=== PATIENT | male | born 1980 | race Caucasian/White ===

== ENCOUNTER 2024-03-26 10:20 | Outpatient (CLI) | payer MEDICAID, SELFPAY ==
[2024-03-26 11:12] LABS: Basophils # 0.1 10^3/uL (0.0-0.1); Basophils % 1.8 %; Eosinophils # 0.2 10^3/uL (0.0-0.8); Eosinophils % 5.9 %; Hematocrit 48.2 % (37-53); Lymphocytes # 1.6 10^3/uL (0.8-4.8); Lymphocytes % 40.1 %; Mean Corpuscular HGB Conc 33.2 g/dL (30-55); Mean Corpuscular Hemoglobin 33.3 pg (27-33); Mean Corpuscular Volume 100.2 fl (82-101); Monocytes # 0.4 10^3/uL (0.2-0.9); Monocytes % 9.8 %; Neutrophils # 1.65 10^3/uL (1.8-7.7); Neutrophils % 42.4 %; Nucleated Red Blood Cells % 0 %; Platelet Count 152 10^3/cmm (157-399); Red Blood Count 4.81 10^6/uL (3.85-5.65); Red Cell Distribution Width 12.4 % (12.1-15.1); White Blood Count 3.89 10^3/uL (3.29-11.43)
[2024-03-26 11:47] LABS: Estmated Average Glucose 97
[2024-03-26 11:48] LABS: Bilirubin Urine Neg (Negative); Blood Urine Neg (Negative); Glucose Urine UA Norm (Normal); Ketones Urine Negative (Negative); Leukocyte Esterase Urine Negative (Negative); Nitrate Urine Negative (Negative); Protein Urine Neg (Negative); Specific Gravity, Urine 1.015 (1.005-1.030); Urine Appearance Clear (CLEAR); Urine Color Yellow (Yellow); Urobilinogen Urine Norm (Negative); pH Urine 6 (5-7)
[2024-03-26 11:49] LABS: Thyroid Stimulating Hormone 1.26 uIU/mL (0.27-4.20); Tumor Marker Alpha Fetoprotein 2.8 ng/mL (0-8.3)
[2024-03-26 12:01] LABS: Alanine Aminotransferase 55 U/L (0-41); Albumin Level 4.1 g/dL (3.5-5.2); Alkaline Phosphatase 266 U/L (40-130); Anion Gap 16.1 (5-19); Aspartate Amino Transferase 64 U/L (0-40); Blood Urea Nitrogen 11 mg/dL (6-20); Calcium 9.2 mg/dL (8.5-10.5); Carbon Dioxide 22 mmol/L (22-29); Chloride 104 mmol/L (98-107); Chol HDL Ratio 5.22 mg/dL (1.0-5.00); Cholesterol 193 mg/dL (0-200); Globulin 4.2 g/dL (1.3-4.6); Glomerular Filtration Rate 91.7 mL/min (90-130); Glucose 95 mg/dL (65-115); HDL Cholesterol 37 mg/dL (60-100); LDL Cholesterol Calculated 125 mg/dL (50-129); LDL HDL Ratio 3.38 RATIO (0.00-3.22); Osmolality Calculated 285 mOsm/kg (285-295); Potassium 4.1 mmol/L (3.5-5.1); Sodium 138 mmol/L (136-145); Total Bilirubin 0.3 mg/dL (0.15-1.2); Total Protein 8.3 g/dL (6.6-8.7); Triglycerides 153 mg/dL (0-150)
[2024-03-26 12:51] LABS: Ferritin 147 ng/mL (30-400); Iron 139 ug/dL (59-158); Percent Saturation 37.7 % (20-50); Total Iron Binding Capacity 368 mcg/dl; Unsaturated Iron Binding 229 ug/dL (112-347)
[2024-03-26 13:07] LABS: 25 Hydroxy Vitamin D 19 ng/mL (30-100); Vitamin B12 768 pg/mL (232-1245)
[2024-03-29 13:55] LABS: HEP C RNA Viral Load Quant <1.18 NOT DETECTED Log IU/mL (NOT DETECTED); HEP C RNA Viral Load Quant <15 NOT DETECTED IU/mL (NOT DETECTED)
[2024-03-31 08:28] LABS: Hepatitis B Virus DNA 19900 IU/mL (NOT DETECTED)
== END 2024-03-26 10:21 | disposition home or self-care (01) ==
LOC: RAD 10:21
PROVIDERS: Family Provider Family Medicine; PCP Family Medicine; Visit Provider Nurse Practitioner Family
DX: B19.20 Unspecified viral hepatitis C without hepatic coma (principal); B19.10 Unspecified viral hepatitis B without hepatic coma; E55.9 Vitamin D deficiency, unspecified; D64.9 Anemia, unspecified; Z01.89 Encounter for other specified special examinations; Z79.899 Other long term (current) drug therapy; R10.811 Right upper quadrant abdominal tenderness
CPT/HCPCS: 80053; 80061; 81001; 82105; 82306; 82607; 82728; 83036; 83540; 83550; 84439; 84443; 85025; 87517; 87522

== ENCOUNTER 2024-04-01 07:18 | Outpatient (CLI) | payer MEDICAID, SELFPAY ==
--- NOTE | 2024-04-01 07:45 | US_ITS ---
WS: [id number] RIGHT UPPER QUADRANT ULTRASOUND HISTORY: RUQ abdominal tenderness COMPARISON: None available. Liver: 13.6 cm in length. Normal size liver. Surface of the liver is slightly nodular and the liver i s echogenic and coarse. No mass or bile duct dilatation. Normal appearance of the portal vein. No rev ersal of flow. Portal Vein: Normal hepatopetal flow with monophasic waveform. Gallbladder: Gallbladder is abnormal. Gallbladder is contracted with diffuse wall thickening. No ston es are identified within the contracted lumen. No adjacent fluid. CBD: 0.3 cm, only a small portion of the common bile duct is visualized. Pancreas: Not well visualized. Right kidney: 13.0 cm in length. Normal size and echogenicity. No hydronephrosis or mass. Aorta and IVC: Unremarkable abdominal aorta and IVC. No ascites. US/US gall bladder [id number] IMPRESSION: 1. Changes of mild cirrhosis involving the liver. No mass. 2. Normal portal vein. 3. Contracted gallbladder with diffuse wall thickening. This is probably due t o hepatocellular disease or nonfasting state. No stones or evidence for acute c holecystitis.
== END 2024-04-01 07:19 | disposition home or self-care (01) ==
LOC: RAD 07:18
PROVIDERS: Family Provider Family Medicine; PCP Family Medicine; Visit Provider Surgery
DX: R10.811 Right upper quadrant abdominal tenderness (principal); K74.60 Unspecified cirrhosis of liver; B19.20 Unspecified viral hepatitis C without hepatic coma; B19.10 Unspecified viral hepatitis B without hepatic coma
CPT/HCPCS: 76705

== ENCOUNTER 2024-07-30 12:14 | Emergency (ER) | payer MEDICAID, SELFPAY ==
[2024-07-30 12:40] VITALS: BP 123/73; PULSE 92; RESP 18; TEMP 36.7; O2SAT 97
--- NOTE | 2024-07-30 12:45 | ECG_ITS ---
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 Measurements Intervals [place] Rate: 91 P: 87 MD: 129 QRS: 90 QRSD: 101 T: 78 QT: 344 QTc: 424 Interpretive Statements SINUS RHYTHM POSSIBLE RIGHT ATRIAL ENLARGEMENT [0.25mV P-WAVE] POSSIBLE LEFT ATRIAL ENLARGEMENT [-0.1mV P-WAVE IN V1/V2] POSSIBLE RIGHT VENTRICULAR CONDUCTION DELAY [RSR (QR) IN V1/V2] Compared to ECG 04/13/2017 22:32:51 Incomplete right bundle-branch block no longer present ST (T wave) deviation no longer present Early repolarization no longer present Electronically Signed On 07-31-2024 20:55:35 CDT by Zeinab Espino M.D. [id number]
--- NOTE | 2024-07-30 13:36 | CT_ITS ---
WS: [id number] CT ABDOMEN AND PELVIS WITH CONTRAST HISTORY: ruq/flank pain, weight loss TECHNIQUE: Imaging performed of the abdomen and pelvis with IV contrast. Single phase imaging of the abdomen. Coronal and sagittal reformats are submitted. All CT scans at [facility] use at [address] one of these dose optimization techniques: automated exposure control; mA and/or kV adjustment per patient size (includes targeted exams where dose is matched to clinical indication); or iterative re construction. IV CONTRAST: Omnipaque 350; 100 mL IV. Oral contrast: No DLP: 305.61 mGy.cm COMPARISON: No similar studies. Lower thorax: Chronic emphysema at the lung bases. No pneumonia. Heart is normal size. No hiatal susan ia. Liver/biliary system: Normal size with no intrahepatic dilatation. Gallbladder: Contracted gallbladder with mild wall thickening. Pancreas: Normal size pancreas and pancreatic duct. No adjacent inflammation. Spleen: Normal size with granulomata. Adrenal glands: Normal. Right kidney: 12.4 cm in length. Mild compensatory hypertrophy. No mass or obstruction. Left kidney: LEFT kidney is not identified. No history of prior nephrectomy. Aorta: Normal. Lymphadenopathy: None. Free fluid: None. GI tract: Stomach is markedly distended with fluid and food products. No mass identified at the gastr ic outlet. No small bowel obstruction. Normal appendix. No colitis. Abdominal wall: Unremarkable abdominal wall. No hernia. Pelvis: No free fluid or adenopathy within the pelvis. Bones: Unremarkable. CT/CT abdomen pelvis w con* [id number] IMPRESSION: 1. Marked gastric distention with fluid and food products. Consider gastropare sis. No mass identified at the gastric outlet. 2. Absent LEFT kidney. No history of prior nephrectomy. Compensatory hypertrop hy of the RIGHT kidney. 3. Contracted gallbladder may be due to nonfasting. 4. No free fluid or adenopathy.
--- NOTE | 2024-07-30 13:39 | ED_ITS ---
HPI - Weakness 2 General: Chief complaint: Weakness Stated complaint: numbness and tingling in hands/ right side pain Time Seen by Provider: 07/30/24 13:12 Source: patient History of Present Illness: Patient is a well-appearing 43-year-old male who presents to the ER with complaints of couple of month history of some right sided flank and right upper quadrant abdominal pain. 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 He also complains of bilateral hand numbness and tingling intermittently for several days. He states he has seen his PCP recently for evaluation of the right upper quadrant flank pain and had an ultrasound that showed some cirrhosis. He has a history of hepatitis B. He also has a history of drug use but has been in remission for at least 2 months. He states he has had unknown weight loss in the last few months as well. He denies any vomiting. No fevers or chills. He has frequent normal bowel movements. No dysuria or frequency. No hematuria. Associated symptoms: Denies chest pain, chills, diaphoresis, fever(s) or headache(s) Review of Systems 2 Const: Denies: fever(s), chills or diaphoresis Card: Denies: chest pain Resp: Denies: dyspnea GI: Reports: abdominal pain Skin/Breast: Denies: rash Neuro: Denies: headache(s) [facility] ED 2 PFSH: Medical History (Updated 07/30/24 @ 16:01 by Michael Mckeon MD) History of methamphetamine abuse Patient has been clean of Meth for 5 month. Last used November 2023 Blood in stool Abnormal EKG Chest pain Medication management Encounter for laboratory test Vitamin D deficiency Hepatitis B Hepatitis C Family History Mother Diabetic acidosis, type I Social History Smoking and tobacco/nicotine status: current every day tobacco/nicotine user cigarettes Alcohol intake: never Substance/Drug Use: former Former substance use details: methamphetamine Physical Exam 2 Const: COMMON NORMALS: no acute distress, average body habitus, alert and well nourished GENERAL APPEARANCE: cooperative ORIENTATION/CONSCIOUSNESS: Yes awake HENMT: COMMON NORMALS: normocephalic and atraumatic HEAD & SCALP: n ormocephalic and atraumatic Eye: COMMON NORMALS: conjunctivae normal CONJUNCTIVA: Yes conjunctivae normal Neck/C-Spine: GENERAL: Yes normal visual inspection Resp: COMMON NORMALS: normal respiratory effort, No retractions and No use of accessory muscles Cardio: COMMON NORMALS: regular rhythm and Peripheral pulses 2+ throughout RHYTHM: regular rhythm PERIPHERAL PULSES: Peripheral pulses 2+ throughout GI: COMMON NORMALS: Normal to inspection, nondistended, normoactive bowel sounds present, Soft to palpation and non-tender PALPATION: Yes Soft to palpation Extremity: COMMON NORMALS: full ROM and no pedal edema Neuro: COMMON NORMALS: no focal motor deficits SENSORIUM/ORIENTATION: Yes alert Skin: COMMON NORMALS: no rashes or lesions noted GENERAL SKIN EXAM: no rashes or lesions noted Course 2 Vital Signs: Vital signs: Vital Signs Temperature 98.1 F 07/30/24 12:40 Pulse Rate 78 07/30/24 13:45 Respiratory Rate 16 07/30/24 14:35 Blood Pressure 121/72 07/30/24 14:35 Pulse Oximetry 98 07/30/24 13:45 Oxygen Delivery Me thod Room Air 07/30/24 13:45 MDM - Weakness Medical Decision Making Patient is a nontoxic 43-year-old gentleman who presents with complaints of some right upper quadrant and right flank pain intermittently for the last couple of weeks. 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 He also complains of some bilateral hand numbness and tingling from time to time. No other stroke or neurologic complaints or symptoms. No upper extremity or lower extremity weakness. No slurred speech. He has a NIH stroke scale of 0 on my exam. He is in no acute distress. His abdominal exam is benign. Vital signs are normal. Basic labs were obtained which are unremarkable per my interpretation. A CT scan of the abdomen and pelvis was performed. It shows an absent left kidney which she was unaware of. He has a distended stomach however states he did eat a large meal just prior to coming to the ER. No acute abnormalities noted on CT imaging. I have provided reassurance and recommended supportive care. I have most suspicion of overuse injury and musculoskeletal discomfort from his repetitive motions at work. He is recommended follow-up with his PCP and was provided return precautions. Lab Data 07/30/24 13:52 07/30/24 13:52 Radiology Impressions Abdomen/Pelvis CT 07/30/24 13:36 IMPRESSION: 1. Marked gastric distention with fluid and food products. Consider gastroparesis. No mass identified at the gastric outlet. 2. Absent LEFT kidney. No history of prior nephrectomy. Compensatory hypertrophy of the RIGHT kidney. 3. Contracted gallbladder may be due to nonfasting. 4. No free fluid or adenopathy. Laboratory Results WBC 6.27 10^3/uL (3.29-11.43) 07/30/24 13:52 RBC 4.42 10^6/uL (3.85-5.65) 07/30/24 13:52 Hgb 14.50 g/dL (11.27-16.99) 07/30/24 13:52 Hct 42.1 % (37-53) 07/30/24 13:52 MCV 95.2 fl (82-101) 07/30/24 13:52 MCH 32.8 pg (27-33) 07/30/24 13:52 MCHC 34.4 g/dL (30-55) 07/30/24 13:52 RDW 13.2 % (12.1-15.1) 07/30/24 13:52 Plt Count 175 10^3/cmm (157-399) 07/30/24 13:52 MPV 10.0 fL (7.4-10.4) 07/30/24 13:52 Neut % (Auto) 49.5 % 07/30/24 13:52 Lymph % (Auto) 34.6 % 07/30/24 13:52 [place] % (Auto) 9.1 % 07/30/24 13:52 Eos % (Auto) 4.8 % 07/30/24 13:52 Baso % (Auto) 1.8 % 07/30/24 13:52 Neut # (Auto) 3.11 10^3/uL (1.8-7.7) 07/30/24 13:52 Lymph # (Auto) 2.2 10^3/uL (0.8-4.8) 07/30/24 13:52 [place] # (Auto) 0.6 10^3/uL (0.2-0.9) 07/30/24 13:52 Eos # (Auto) 0.3 10^3/uL (0.0-0.8) 07/30/24 13:52 Baso # (Auto) 0.1 10^3/uL (0.0-0.1) 07/30/24 13:52 Nucleated RBC % (auto) 0 % 07/30/24 13:52 Nucleated RBCs # 0.0 /100WBC 07/30/24 13:52 PT 14.00 SECONDS (12.1-14.9) 07/30/24 13:52 INR 1.04 (0.8-1.2) 07/30/24 13:52 APTT 28.8 SECONDS (23.9-36.7) 07/30/24 13:52 Sodium 140 mmol/L (136-145) 07/30/24 13:52 Potassium 4.1 mmol/L (3.5-5.1) 07/30/24 13:52 Chloride 105 mmol/L (98-107) 07/30/24 13:52 Carbon Dioxide 23 mmol/L (22-29) 07/30/24 13:52 Anion Gap 16.1 (5-19) 07/30/24 13:52 BUN 17 mg/dL (6-20) 07/30/24 13:52 Creatinine 1.0 mg/dL (0.7-1.2) 07/30/24 13:52 GFR Calculation 81.2 mL/min (90-130) L 07/30/24 13:52 Glucose 103 mg/dL (65-115) 07/30/24 13:52 Calculated Osmolality 292 mOsm/kg (285-295) 07/30/24 13:52 Calcium 8.5 mg/dL (8.5-10.5) 07/30/24 13:52 Magnesium 1.9 mg/dL (1.7-2.3) 07/30/24 13:52 Total Bilirubin 0.6 mg/dL (0.15-1.2) 07/30/24 13:52 AST 42 U/L (0-40) H 07/30/24 13:52 ALT 40 U/L (0-41) 07/30/24 13:52 Alkaline Phosphatase 157 U/L (40-130) H 07/30/24 13:52 Total Protein 7.3 g/dL (6.6-8.7) 07/30/24 13:52 Albumin 4.1 g/dL (3.5-5.2) 07/30/24 13:52 Globulin 3.2 g/dL (1.3-4.6) 07/30/24 13:52 Lipase 43 U/L (13-60) 07/30/24 13:52 All radiology interpretation(s) finalized by discharge Discharge Plan Discharge Patient Disposition: Home Clinical Impression: Acute flank pain, Hand paresthesia Condition: Stable Prescriptions: No Action amoxicillin 875 mg tablet 875 mg PO BID Discharge Orders: Discharge ED (Routine); Ordered 07/30/24 Ordered By: Michael Mckeon Referrals: Eddie Morton MD [Primary Care Provider] - Discharge Diet: Usual diet Discharge Activity: Increase activity as tolerated Patient Instructions: Musculoskeletal Pain (ED), Opioid Safety, Pain Management Activity Restrictions/Additional Instructions: Patient may take Tylenol as directed for pain. Follow-up with your primary care provider as needed for recheck. Return to the ER for any new or worsening symptoms or any other concerns. 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
[2024-07-30 13:45] VITALS: BP 121/72; PULSE 78; RESP 16; O2SAT 98
[2024-07-30 14:06] LABS: Basophils # 0.1 10^3/uL (0.0-0.1); Basophils % 1.8 %; Eosinophils # 0.3 10^3/uL (0.0-0.8); Eosinophils % 4.8 %; Hematocrit 42.1 % (37-53); Lymphocytes # 2.2 10^3/uL (0.8-4.8); Lymphocytes % 34.6 %; Mean Corpuscular HGB Conc 34.4 g/dL (30-55); Mean Corpuscular Hemoglobin 32.8 pg (27-33); Mean Corpuscular Volume 95.2 fl (82-101); Monocytes # 0.6 10^3/uL (0.2-0.9); Monocytes % 9.1 %; Neutrophils # 3.11 10^3/uL (1.8-7.7); Neutrophils % 49.5 %; Nucleated Red Blood Cells % 0 %; Platelet Count 175 10^3/cmm (157-399); Red Blood Count 4.42 10^6/uL (3.85-5.65); Red Cell Distribution Width 13.2 % (12.1-15.1); White Blood Count 6.27 10^3/uL (3.29-11.43)
[2024-07-30 14:21] LABS: INR 1.04 (0.8-1.2)
[2024-07-30 14:22] LABS: Partial Thromboplastin Time 28.8 SECONDS (23.9-36.7)
[2024-07-30 14:24] LABS: Alanine Aminotransferase 40 U/L (0-41); Albumin Level 4.1 g/dL (3.5-5.2); Alkaline Phosphatase 157 U/L (40-130); Anion Gap 16.1 (5-19); Aspartate Amino Transferase 42 U/L (0-40); Blood Urea Nitrogen 17 mg/dL (6-20); Calcium 8.5 mg/dL (8.5-10.5); Carbon Dioxide 23 mmol/L (22-29); Chloride 105 mmol/L (98-107); Creatinine Clr Calc Pharmacy 83.8453; Globulin 3.2 g/dL (1.3-4.6); Glomerular Filtration Rate 81.2 mL/min (90-130); Glucose 103 mg/dL (65-115); Lipase 43 U/L (13-60); Magnesium 1.9 mg/dL (1.7-2.3); Osmolality Calculated 292 mOsm/kg (285-295); Potassium 4.1 mmol/L (3.5-5.1); Sodium 140 mmol/L (136-145); Total Bilirubin 0.6 mg/dL (0.15-1.2); Total Protein 7.3 g/dL (6.6-8.7)
--- NOTE | 2024-07-30 14:27 | PC.NURSE ---
patient refused next round of lab draws and next breathing treatment. requests to leave. she signed ama, iv discontinued and she walked out of ed. dr cosby notified.
[2024-07-30 14:35] VITALS: BP 121/72; RESP 16
[2024-07-30] MEDS: iohexol 350 mg/mL 500 mL Btl (per mL) IV (14:37)
--- NOTE | 2024-07-30 16:43 | PC.NURSE ---
iv discontinued prior to discharge. pt tolerated no complications
== END 2024-07-30 16:49 | disposition home or self-care (01) ==
PROVIDERS: Emergency Provider Student in an Organized Health Care Education/Training Program; PCP Internal Medicine
DX: R10.11 Right upper quadrant pain (principal); R20.2 Paresthesia of skin; F17.210 Nicotine dependence, cigarettes, uncomplicated; Z86.19 Personal history of other infectious and parasitic diseases
CPT/HCPCS: 74177; 80053; 83690; 83735; 85025; 85610; 85730; 93005; 99285

== ENCOUNTER 2025-01-22 12:58 | Emergency (ER) | payer MEDICAID, SELFPAY ==
[2025-01-22 13:24] VITALS: BP 129/86; PULSE 93; RESP 18; TEMP 37.1; O2SAT 97; BMI 19.5
[2025-01-22 14:29] LABS: Basophils # 0.1 10^3/uL (0.0-0.1); Basophils % 1.1 %; Eosinophils # 0.3 10^3/uL (0.0-0.8); Eosinophils % 4.9 %; Hematocrit 42.2 % (37-53); Lymphocytes # 2.1 10^3/uL (0.8-4.8); Lymphocytes % 37.1 %; Mean Corpuscular HGB Conc 32.7 g/dL (30-55); Mean Corpuscular Volume 97.9 fl (82-101); Mean Platelet Volume 10.2 fL (7.4-10.4); Monocytes # 0.6 10^3/uL (0.2-0.9); Monocytes % 11.2 %; Neutrophils # 2.53 10^3/uL (1.8-7.7); Neutrophils % 45.5 %; Nucleated Red Blood Cells % 0 %; Platelet Count 169 10^3/cmm (157-399); Red Blood Count 4.31 10^6/uL (3.85-5.65); Red Cell Distribution Width 13.4 % (12.1-15.1); White Blood Count 5.55 10^3/uL (3.29-11.43)
[2025-01-22 14:30] VITALS: BP 118/81; PULSE 81; O2SAT 96
--- NOTE | 2025-01-22 14:36 | W.ED.ABDPA2 ---
HPI - Abdominal Pain General: Chief Complaint: Abdominal Pain Stated Complaint: knot right side upper ab Time Seen by Provider: 01/22/25 13:07 History of Present Illness: 43-year-old male presents emergency room complaining of right upper quadrant discomfort. He has what he describes as a knot in his right upper abdomen. Its only palpable when he is standing. It is not noticeable or identifiable around the is lying down supine. No trauma. No vomiting or diarrhea he has been nauseous. He has a known history of hepatitis B and C he is currently at [facility]. No fever sweats or chills. Associated Symptoms: Denies chills, dysuria and fever(s) Related Data Home Medications ?Medication ?Instructions ?Recorded ?Confirmed mirtazapine 30 mg tablet 30 mg PO BEDTIME 01/22/25 01/22/25 Allergies Allergy/AdvReac Type Severity Reaction Status Date / Time morphine Allergy ALGY-Difficulty Verified 07/30/24 12:45 Breathing Review of Systems Const: Denies: fever(s) or chills Card: Denies: chest pain Resp: Denies: dyspnea GI: Denies: abdominal pain : Denies: dysuria, urinary frequency or urinary urgency Musc: Denies: neck pain or back pain Skin/Breast: Denies: rash PFSH ED PFSH: Medical History History of methamphetamine abuse Patient has been clean of Meth for 5 month. Last used November 2023 Blood in stool Abnormal EKG Chest pain Medication management Encounter for laboratory test Vitamin D deficiency Hepatitis B Hepatitis C Family History Mother Diabetic acidosis, type I Social History Smoking and tobacco/nicotine status: current every day tobacco/nicotine user cigarettes Alcohol intake: never Substance/Drug Use: former Former substance use details: methamphetamine Physical Exam Const: COMMON NORMALS: no acute distress GENERAL APPEARANCE: cooperative and comfortable ORIENTATION/CONSCIOUSNESS: Yes awake, Yes oriented to person, Yes oriented to place and Yes oriented to time HENMT: COMMON NORMALS: normocephalic, atraumatic and hearing grossly normal bilaterally HEAD & SCALP: normocephalic and atraumatic Resp: COMMON NORMALS: normal respiratory effort, No retractions, No use of accessory muscles and clear to auscultation bilaterally AUSCULTATION: clear to auscultation bilaterally Cardio: COMMON NORMALS: regular rate, regular rhythm and No murmurs present (Cardio) RATE: regular rate RHYTHM: regular rhythm GI: COMMON NORMALS: Soft to palpation and No hepatosplenomegaly present AUSCULTATION: Yes normoactive bowel sounds PALPATION: Yes Soft to palpation, No Tenderness to palpation present (GI), No Guarding due to palpation present (GI) and Yes No hepatosplenomegaly present OTHER: When standing the area the patient refers to feels like it is the edge of the rectus muscle there is no herniation. While supine is not identifiable or palpable in that same area. Extremity: COMMON NORMALS: normal to inspection, capillary refill normal, no clubbing, cyanosis or edema, no calf tenderness and no pedal edema Neuro: SENSORIUM/ORIENTATION: Yes oriented to person, Yes oriented to place and Yes oriented to time Skin: COMMON NORMALS: no rashes or lesions noted GENERAL SKIN EXAM: no rashes or lesions noted Course Vital Signs: Vital signs: Vital Signs Temperature 98.8 F 01/22/25 13:24 Pulse Rate 85 01/22/25 15:24 Respiratory Rate 18 01/22/25 13:24 Blood Pressure 130/79 01/22/25 15:24 Pulse Oximetry 98 01/22/25 15:24 Oxygen Delivery Me thod Room Air 01/22/25 15:00 MDM - Abdominal Pain Medical Decision Making The area the patient refers a nodule is not palpable by himself or by my exam. When he stands he is able to find the area of concern as long he upper portion of the rectus sheath muscle where it attaches to the obliques there is no herniation. No redness no erythema. Laboratory test not show any significant abnormalities other than the marked elevation of his transaminases and alk phos related to his hepatitis C and be. He has follow-up appointments for this. His T. bili is normal. Does not appear to be jaundice. He is not having any biliary biliary colic. Will discharge patient home follow-up with his primary care Lab Data 01/22/25 14:23 01/22/25 14:23 Labs/Radiology: Laboratory Results WBC 5.55 10^3/uL (3.29-11.43) 01/22/25 14:23 RBC 4.31 10^6/uL (3.85-5.65) 01/22/25 14:23 Hgb 13.80 g/dL (11.27-16.99) 01/22/25 14:23 Hct 42.2 % (37-53) 01/22/25 14:23 MCV 97.9 fl (82-101) 01/22/25 14:23 MCH 32.0 pg (27-33) 01/22/25 14:23 MCHC 32.7 g/dL (30-55) 01/22/25 14:23 RDW 13.4 % (12.1-15.1) 01/22/25 14:23 Plt Count 169 10^3/cmm (157-399) 01/22/25 14:23 MPV 10.2 fL (7.4-10.4) 01/22/25 14:23 Neut % (Auto) 45.5 % 01/22/25 14:23 Lymph % (Auto) 37.1 % 01/22/25 14:23 [place] % (Auto) 11.2 % 01/22/25 14:23 Eos % (Auto) 4.9 % 01/22/25 14:23 Baso % (Auto) 1.1 % 01/22/25 14:23 Neut # (Auto) 2.53 10^3/uL (1.8-7.7) 01/22/25 14:23 Lymph # (Auto) 2.1 10^3/uL (0.8-4.8) 01/22/25 14:23 [place] # (Auto) 0.6 10^3/uL (0.2-0.9) 01/22/25 14:23 Eos # (Auto) 0.3 10^3/uL (0.0-0.8) 01/22/25 14:23 Baso # (Auto) 0.1 10^3/uL (0.0-0.1) 01/22/25 14:23 Nucleated RBC % (auto) 0 % 01/22/25 14:23 Nucleated RBCs # 0.0 /100WBC 01/22/25 14:23 Sodium 138 mmol/L (136-145) 01/22/25 14:23 Potassium 4.2 mmol/L (3.5-5.1) 01/22/25 14:23 Chloride 106 mmol/L (98-107) 01/22/25 14:23 Carbon Dioxide 24 mmol/L (22-29) 01/22/25 14:23 Anion Gap 12.2 (5-19) 01/22/25 14:23 BUN 17 mg/dL (6-20) 01/22/25 14:23 Creatinine 0.8 mg/dL (0.7-1.2) 01/22/25 14:23 GFR Calculation 104.5 mL/min (90-130) 01/22/25 14:23 Glucose 102 mg/dL (65-115) 01/22/25 14:23 Calculated Osmolality 288 mOsm/kg (285-295) 01/22/25 14:23 Calcium 8.8 mg/dL (8.5-10.5) 01/22/25 14:23 Total Bilirubin 0.4 mg/dL (0.15-1.2) 01/22/25 14:23 AST 277 U/L (0-40) H 01/22/25 14:23 ALT 508 U/L (0-41) H 01/22/25 14:23 Alkaline Phosphatase 246 U/L (40-130) H 01/22/25 14:23 Total Protein 7.8 g/dL (6.6-8.7) 01/22/25 14:23 Albumin 4.0 g/dL (3.5-5.2) 01/22/25 14:23 Globulin 3.8 g/dL (1.3-4.6) 01/22/25 14:23 Lipase 40 U/L (13-60) 01/22/25 14:23 No radiology studies performed this visit Discharge Plan Discharge Patient Disposition: Home Clinical Impression: Hepatitis C Qualifiers: Viral hepatitis chronicity: chronic Hepatic coma status: without hepatic coma Qualified Code(s): B18.2 - Chronic viral hepatitis C Hepatitis B Qualifiers: Viral hepatitis chronicity: chronic Hepatic coma status: without hepatic coma Hepatitis delta agent presence: without delta-agent Qualified Code(s): B18.1 - Chronic viral hepatitis B without delta-agent Condition: Stable Prescriptions: No Action mirtazapine 30 mg tablet 30 mg PO BEDTIME Discharge Orders: Discharge ED (Routine); Ordered 01/22/25 Ordered By: Brayden Goff Referrals: DARLYN Zhong, REVOLVING FIELD ASSEMBLER [Primary Care Provider] - Discharge Diet: Usual diet Discharge Activity: Increase activity as tolerated Patient Instructions: Opioid Safety, Pain Management Activity Restrictions/Additional Instructions: Thank you for choosing [facility] for your healthcare needs today. It is very important that you follow up as instructed or that you return to the Emergency Department should you have concerns or if your condition changes or worsens in any way. You were seen in the emergency room with a complaint of not being after abdomen no palpable knot noted while you are standing was able to noticed the area where you prefer to seems to be the edge of your rectus muscles. It is more easily identifiable because of how skinny you are. Your liver enzymes are significantly elevated but your bilirubin is normal the remainder of your labs are normal these elevations are likely due to your hepatitis C and B. You should follow-up with your primary care doctor regarding these. 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
[2025-01-22 14:45] LABS: Alanine Aminotransferase 508 U/L (0-41); Alkaline Phosphatase 246 U/L (40-130); Anion Gap 12.2 (5-19); Aspartate Amino Transferase 277 U/L (0-40); Blood Urea Nitrogen 17 mg/dL (6-20); Calcium 8.8 mg/dL (8.5-10.5); Carbon Dioxide 24 mmol/L (22-29); Chloride 106 mmol/L (98-107); Globulin 3.8 g/dL (1.3-4.6); Glomerular Filtration Rate 104.5 mL/min (90-130); Glucose 102 mg/dL (65-115); Lipase 40 U/L (13-60); Osmolality Calculated 288 mOsm/kg (285-295); Potassium 4.2 mmol/L (3.5-5.1); Sodium 138 mmol/L (136-145); Total Bilirubin 0.4 mg/dL (0.15-1.2); Total Protein 7.8 g/dL (6.6-8.7)
--- NOTE | 2025-01-22 14:55 | PC.PHAR ---
Pt is current resident at [facility].01/22/25
[2025-01-22 15:00] VITALS: BP 111/67; PULSE 74; O2SAT 98
[2025-01-22 15:24] VITALS: BP 130/79; PULSE 85; O2SAT 98
== END 2025-01-22 15:24 | disposition home or self-care (01) ==
PROVIDERS: Emergency Provider Family Medicine; PCP Nurse Practitioner Family
DX: B18.2 Chronic viral hepatitis C (principal); B18.1 Chronic viral hepatitis B without delta-agent; F17.210 Nicotine dependence, cigarettes, uncomplicated
CPT/HCPCS: 36415; 80053; 83690; 85025; 99283

== ENCOUNTER 2025-02-10 10:04 | Outpatient (CLI) | payer MEDICAID, SELFPAY ==
--- NOTE | 2025-02-10 10:09 | US_ITS ---
WS: [id number] RIGHT UPPER QUADRANT ULTRASOUND HISTORY: ELEVATED LIVER ENZYMES/ABD PAIN COMPARISON: 04/01/2024 Liver: 13.4 cm in length. Liver is normal in size. Surface of the liver is nodular. No mass. Portal Vein: Normal hepatopetal flow with monophasic waveform. Gallbladder: Normally distended gallbladder. No stones identified. No gallbladder wall thickening or edema. CBD: 0.2 cm Pancreas: Distal pancreatic tail is not well visualized. Remaining pancreas is unremarkable. Right kidney: 11.6 cm in length. Normal size and echogenicity. No hydronephrosis or mass. Aorta and IVC: Unremarkable abdominal aorta and IVC. No ascites. US/US liver [id number] IMPRESSION: 1. Normal gallbladder. Gallbladder is no longer contracted as noted on the alfonzo or ultrasound. No cholelithiasis. 2. Normal common bile duct. 3. Cirrhotic liver, unchanged since 04/01/2024.
== END 2025-02-10 10:05 | disposition home or self-care (01) ==
PROVIDERS: PCP Nurse Practitioner Family; Visit Provider Internal Medicine
DX: R10.811 Right upper quadrant abdominal tenderness (principal); R63.4 Abnormal weight loss; B19.10 Unspecified viral hepatitis B without hepatic coma; R74.01 Elevation of levels of liver transaminase levels; R93.2 Abnormal findings on diagnostic imaging of liver and biliary tract
CPT/HCPCS: 76705